=== PATIENT | male | born 1975 | race American Indian/Alaskan Native ===

== ENCOUNTER 2017-09-07 18:58 | Emergency (ER) | payer OTHER ==
[2017-09-07 19:39] VITALS: BP 134/57
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
== END 2017-09-07 23:09 | disposition home or self-care (01) ==
LOC: ED 18:58
DX: S16.1XXA Strain of muscle, fascia and tendon at neck level, initial encounter (principal); T14.8XXA Other injury of unspecified body region, initial encounter; M25.562 Pain in left knee; F17.200 Nicotine dependence, unspecified, uncomplicated; V89.2XXA Person injured in unspecified motor-vehicle accident, traffic, initial encounter; Y93.89 Activity, other specified; Y99.8 Other external cause status; Y92.410 Unspecified street and highway as the place of occurrence of the external cause
CPT/HCPCS: 71045; 72020; 72125; 99283

== ENCOUNTER 2020-11-01 13:42 | Emergency (ER) | payer SELFPAY ==
[2020-11-01 13:50] VITALS: BP 153/85
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
== END 2020-11-01 15:51 | disposition home or self-care (01) ==
LOC: ED 13:42
DX: S13.4XXA Sprain of ligaments of cervical spine, initial encounter (principal); S39.012A Strain of muscle, fascia and tendon of lower back, initial encounter; F17.200 Nicotine dependence, unspecified, uncomplicated; Z79.899 Other long term (current) drug therapy; V49.49XA Driver injured in collision with other motor vehicles in traffic accident, initial encounter; Y93.89 Activity, other specified; Y92.488 Other paved roadways as the place of occurrence of the external cause; Y99.8 Other external cause status
CPT/HCPCS: 72040; 72100; 99283